=== PATIENT | male | born 1970 | race African-American/Black ===

== ENCOUNTER 2021-12-06 22:58 | Emergency (ER) | payer MEDICARE, MEDICAID ==
[~2021-12-06] VITALS: Ht 182.9 cm; Wt 120.0 kg
[2021-12-07] MEDS ORDERED: ZIPR40CA2 PO (01:10)
[2021-12-07] MEDS ORDERED: OMEP20TA15 PO (01:10)
[2021-12-07] MEDS ORDERED: TRAZ-251 PO (01:10)
[2021-12-07 01:19] VITALS: BP 128/70
== END 2021-12-07 01:21 | disposition home or self-care (01) ==
LOC: ER 22:58
DX: F41.9 Anxiety disorder, unspecified (principal); F20.9 Schizophrenia, unspecified; F32.9 Major depressive disorder, single episode, unspecified
CPT/HCPCS: 99283